=== PATIENT | male | born 1985 | race Caucasian/White ===

== ENCOUNTER 2020-02-05 23:54 | Emergency (ER) | payer SELFPAY ==
[~2020-02-05] VITALS: Ht 175.3 cm; Wt 86.0 kg
[2020-02-06] MEDS ORDERED: HTN MED PO (00:10)
[2020-02-06] MEDS ORDERED: KETOROLAC TROMETHAMINE 30 MG/ML VIAL ONE (00:43)
[2020-02-06] MEDS ORDERED: KETOROLAC TROMETHAMINE 60 MG/2 ML VIAL IM ONE (00:45)
[2020-02-06] MEDS ORDERED: KETOROLAC TROMETHAMINE 30 MG/ML VIAL IVP ONE (01:00)
[2020-02-06] MEDS ORDERED: ONDANSETRON HCL 4 MG/2 ML VIAL IVP ONE (01:30)
[2020-02-06] MEDS ORDERED: MORPHINE SULFATE 4 MG/ML SYRINGE IVP ONE (01:30)
[2020-02-06] MEDS ORDERED: FentaNYL CITRATE-PF 100 MCG/2 ML VIAL IVP ONE (02:45)
[2020-02-06] MEDS ORDERED: MIDAZOLAM HCL 5 MG/ML VIAL IVP ONE (02:45)
[2020-02-06 04:02] VITALS: BP 139/84
== END 2020-02-06 05:16 | disposition home or self-care (01) ==
LOC: EMS 23:55
DX: S43.015A Anterior dislocation of left humerus, initial encounter (principal); I10 Essential (primary) hypertension; X58.XXXA Exposure to other specified factors, initial encounter; Y93.89 Activity, other specified; Y92.89 Other specified places as the place of occurrence of the external cause; Y99.8 Other external cause status
CPT/HCPCS: 23650; 71046; 73030; 96374; 96375; 99152; 99285; J1885; J2250; J2270; J2405; J3010